=== PATIENT | female | born 1965 | race Caucasian/White ===

== ENCOUNTER → 2016-12-12 | Outpatient (CLI) | payer BC, SELFPAY ==
--- NOTE | 2016-12-12 10:18 | CT ---
EXAM DESCRIPTION: Abdomen/Pelvis w/Contrast CLINICAL HISTORY: Microscopic hematuria TECHNIQUE: CT of the abdomen and pelvis was performed with IV contrast.. Multiple axial images and multiplanar reconstructions were generated. FINDINGS: GI: No dilated bowel, free air, or free fluid. Liver: Two three low densities noted on the prior study are due to benign cavernous hemangiomas. Likely left hepatic cyst noted. Biliary: No calcified gallstones. Spleen: Unremarkable. Pancreas: Unremarkable. Adrenal Glands: No significant nodularity. Kidneys: No suspicious enhancement. Tiny subcentimeter low densities noted bilaterally compatible with cysts. Pelvic organs: The patient is status post hysterectomy. Bilateral adnexae are also not visualized. Bones: No suspicious lesion/fracture. Lymph nodes: No enlarged lymph nodes. Lung bases: No significant consolidation or nodularity. IMPRESSION: 1. No findings to account for patient's microscopic hematuria. 2. The abnormalities noted on the prior CT from April 2016 related to hepatic cysts and benign cavernous hemangiomas. Electronically signed by: Lavelle Palacios MD 12/12/2016 10:17 AM CDT
== END | disposition home or self-care (01) ==
LOC: CT 08:09
PROVIDERS: ATTEND Urology
DX: R31.9 Hematuria, unspecified (principal)

== ENCOUNTER → 2017-06-18 | Outpatient (CLI) | payer BC | END | disposition home or self-care (01) | LOC: GMAJ 10:41 | PROVIDERS: ATTEND Family Medicine | DX: Z00.00 Encounter for general adult medical examination without abnormal findings (principal) ==

== ENCOUNTER → 2018-01-02 | Outpatient (CLI) | payer OTHER | LOC: LAB.O 09:49 | PROVIDERS: ATTEND Physician Assistant | DX: N39.0 Urinary tract infection, site not specified (principal) ==

== ENCOUNTER → 2018-03-03 | Outpatient (CLI) | payer BC | LOC: GMAJ 10:37 | PROVIDERS: ATTEND Family Medicine | DX: R06.02 Shortness of breath (principal) ==

== ENCOUNTER → 2018-05-28 | Outpatient (CLI) | payer BC ==
--- NOTE | 2018-06-02 14:58 | MAM ---
EXAM DESCRIPTION: 3D Screening BILATERAL : Digital Mammography. CLINICAL HISTORY: 52 years Female SCREENING . No personal history of breast cancer. Remote family history of breast cancer. Childbirth. Hysterectomy. Taking estradiol currently.. Lifetime risk of developing breast cancer (Tyrer-Cuzick model) is 6.1 %. COMPARISON: None.. No prior reports available. TECHNIQUE: Bilateral CC and MLO projection full-field images, Digital tomosynthesis mammographic technique. Bilateral digital 2-D full-field MLO images. CAD not utilized. FINDINGS: The breast parenchymal density pattern is: Scattered areas of fibroglandular density. No skin thickening or nipple retraction. Bilateral axillary lymph nodes. Bilateral solitary microcalcifications and benign type groups of microcalcifications. Group of heterogeneous calcifications are visible in the middle to posterior third of the left breast at the 300-330 clock position approximately 7.7 cm from the nipple. No new focal, stellate mass or density, focal asymmetry , and no suspicious microcalcifications right breast. IMPRESSION: BI-RADS CATEGORY: 0 - INCOMPLETE- Need additional imaging evaluation. FOLLOW-UP: Recall for additional imaging: Full-field digital diagnostic imaging and spot magnification digital imaging of the left breast. Possible follow-up targeted left breast ultrasound. Depending on the diagnostic images. Written communication concerning the IMPRESSION and Follow-up, will be mailed to the patient and referring health care provider. Electronically signed by: Shivam Freitas MD 06/02/2018 2:57 PM CDT
== END ==
LOC: MAMMO 14:00
PROVIDERS: ATTEND Obstetrics & Gynecology
DX: Z12.31 Encounter for screening mammogram for malignant neoplasm of breast (principal)

== ENCOUNTER → 2018-06-11 | Outpatient (CLI) | payer BC, OTHER ==
--- NOTE | 2018-06-11 15:38 | US ---
EXAM DESCRIPTION: Breast,Right: Ultrasound CLINICAL HISTORY: 52 yearsFemaleABNORMAL MAMMO COMPARISON: Digital diagnostic mammogram right breast date Other TECHNIQUE: Transcutaneous scanning of the right breast utilizing valentino-scale and Doppler modes. Scanning performed by the long chain beamer and Dr. Freitas. FINDINGS: Scanning of the retroareolar right breast, with emphasis on the 3:00 position near the posterior nipple line 4 cm from the nipple. Mixed fibroglandular and fatty echotexture. Small ducts are seen. No distinct solid mass or cyst. No parenchymal edema or large calcifications. No overlying skin changes. No abnormal vascularity. IMPRESSION: 1. Bi-Rads Category 2: Benign. 2. Please refer to bilateral diagnostic digital breast tomosynthesis and 2-D special digital images right breast and report on this visit. The FINDINGS and the FOLLOW-UP plan were reviewed in person with the patient after the examination. Written communication explaining the IMPRESSION and FOLLOW-UP will be mailed to the patient and referring care provider. Electronically signed by: Shivam Freitas MD 06/11/2018 3:36 PM CDT
--- NOTE | 2018-06-11 15:44 | MAM ---
EXAM DESCRIPTION: 3D Diagnostic, Bilateral: Digital Mammography CLINICAL HISTORY: 52 yearsFemaleABNORMAL MAMMOGRAM focal asymmetry retroareolar right breast. Microcalcifications left breast.. COMPARISON: Bilateral screening digital breast tomosynthesis 05/28/2018. Targeted right breast ultrasound following this examination.. . TECHNIQUE: Bilateral LM projection full-field images, digital mammographic tomosynthesis technique. 2-D digital magnification images of the anterior right breast MLO projection. CAD not utilized. FINDINGS: The breast parenchymal density pattern is: Scattered areas of fibroglandular density. No skin thickening or nipple retraction focal asymmetry is faintly seen at the 300 clock position of the right breast 4 cm posterior to the nipple abutting the posterior nipple line. Ultrasound: Scanning of the retroareolar right breast, with emphasis on the 3:00 position near the posterior nipple line 4 cm from the nipple. Mixed fibroglandular and fatty echotexture. Small ducts are seen. No distinct solid mass or cyst. No parenchymal edema or large calcifications. No overlying skin changes. No abnormal vascularity. IMPRESSION: Benign exam. BIRAD CATEGORY: 2 BENIGN FINDINGS. RECOMMENDATIONS: FOLLOW UP: Routine digital bilateral screening, one year interval from May 2018. Written communication explaining the IMPRESSION and follow-up, will be mailed to the patient and referring health care provider. According to the [employer], yearly mammograms are recommended starting at age 40 and continuing as long as a woman is in good health. Any breast change noted on a breast self-exam should be reported promptly to the patient's healthcare provider. Breast MRI is recommended for women with an approximately 20-25% or greater lifetime risk of breast cancer, including women with a strong family history of breast or ovarian cancer and women who have been treated for Hodgkin's disease. A negative mammographic report should not delay tissue diagnosis in patients with significant clinical history or physical findings. Extremely dense breast tissue limits the sensitivity of digital mammography. Electronically signed by: Shivam Freitas MD 06/11/2018 3:43 PM CDT
== END ==
LOC: MAMMO 09:01
PROVIDERS: ATTEND Family Medicine
DX: R92.8 Other abnormal and inconclusive findings on diagnostic imaging of breast (principal)
CPT/HCPCS: 76641; 77066; G0279

== ENCOUNTER 2020-05-02 14:32 | Emergency (ER) | payer BC ==
--- NOTE | 2020-05-02 14:36 | ED.PDOC ---
History of Present Illness - General Time Seen by Provider: 05/02/20 14:34 Source: patient - History of Present Illness Initial Comments: 54 year old female presents to the ED with chief complaint of left ankle pain following injury at home just prior to arrival. She states that she and her were trying to move a toolbox out of the bed of their truck when the top of the toolbox fell over and landed against her ankle. Her was able to lift the toolbox off. She reports constant throbbing pain to the L medial ankle which radiates throughout the ankle and to the other side, constant, 6/10 severity, worse with palpation and with weightbearing. She is unable to tolerate any weightbearing or walking. She has not taken any medications for relief. Denies any weakness, numbness. Reports some bruising and swelling to the Left ankle. Denies any foot pain. Allergies/Adverse Reactions: Allergies NO KNOWN ALLERGY Allergy (Verified 05/02/20 14:47) Home Medications: Ambulatory Orders Acetaminophen W/ Codeine [Tylenol W/ CODEINE #3] 1 tablet PO Q6H PRN 14 Days #10 tablet 05/02/20 Review of Systems - Review of Systems Review of Systems: 05/02/20 15:20 as per HPI All other Systems: Reviewed and Negative Past Medical History (General) - Patient Medical History Hx Congestive Heart Failure: No Hx Diabetes: No Family Medical History - Family History Mother Family History: Unknown Physical Exam - Physical Exam General Appearance: Alert, No apparent distress Eyes, Ears, Nose, Throat: PERRL/EOMI, normal ENT inspection Neck: full range of motion, supple, normal inspection Cardiovascular/Respiratory: regular rate, rhythm, no M/R/G, normal peripheral pulses, no JVD, normal breath sounds Gastrointestinal/Abdominal: non-tender, no organomegaly Back: normal inspection, no CVA tenderness, no vertebral tenderness Thigh/Hip: other - mild ecchymosis and soft tissue ttp R anteromedial thigh Leg: non-tender Knee: normal inspection, non-tender, no evidence of injury, normal ROM Ankle: other - L ankle with moderate ecchymosis and swelling, markedly ttp to medial and lateral ankle, ROM markedly limited due to pain, strength and sensation intact throughout, DP & PT pulses 2+ and equal Foot: normal inspection, non-tender, no evidence of injury, normal ROM Neuro/Tendon: normal sensation, normal motor functions Mental Status: alert, oriented x 3 Skin: warm/dry Progress - Progress Progress: 05/02/20 14:45 Acute L ankle pain -concern for R ankle fracture. Consider also R foot fracture, contusion injury, sprain/strain -obtain XR R ankle and R foot -cold compress, Tylenol #3 for pain 05/02/20 15:22 -X-ray L ankle and right foot reveals slightly displaced trimalleolar fracture of the L ankle. There is no evidence of L foot fracture. I discussed the patient and x-rays with Dr. lorenz, orthopedic surgery, who states that the patient will likely need surgery vs possible prolonged casting. Advises to place in splint, NWB LLE, f/u in ortho clinic tomorrow, elevate L leg, ice. -will place splint in ED and dc to home with plan as above Jeffrey León MD Billing #[id number] Procedures - Splinting Left Leg Hand-Made Type: orthoglass Splint: posterior lower leg Pre-Proc Neuro Vasc Exam: normal Post-Proc Neuro Vasc Exam: normal Departure - Departure Clinical Impression: Trimalleolar fracture of ankle, closed Qualifiers: Encounter type: initial encounter Laterality: left Qualified Code(s): S82.852A - Displaced trimalleolar fracture of left lower leg, initial encounter for closed fracture Time of Disposition: 15:29 Disposition: Discharge to Home or Self Care Condition: Good Instructions: Ankle Fracture (DC) Diet: resume usual diet Activity: other - non weight bearing left lower extremity Referrals: Campbell Mandujano MD [Primary Care Provider] - 1-2 Weeks Torres Lorenz MD [Active Staff] - 1-2 Days Prescriptions: Acetaminophen W/ Codeine [Tylenol W/ CODEINE #3] 1 tablet PO Q6H PRN 14 Days #10 tablet PRN Reason: Pain Home Medications: Ambulatory Orders Acetaminophen W/ Codeine [Tylenol W/ CODEINE #3] 1 tablet PO Q6H PRN 14 Days #10 tablet 05/02/20 Additional Instructions: Follow-up tomorrow as directed with orthopedic surgery clinic. Keep the splint in place at all times. Do not bear weight or walk on the left leg until cleared by orthopedic surgery. Return to the ED if you develop any concerning symptoms such as weakness or numbness in the left leg or color change of the left foot. Keep the left leg elevated as often as possible and continue to apply a cold pack to the affected area for 15 to 20 minutes every 1-2 hours for the next 2 to 3 days to help limit pain and swelling. Continue to take ywrl-azk-vhingug medication such as ibuprofen 600 mg every 6 hours as needed and Tylenol 650 mg every 6 hours as needed for pain. You may take the Tylenol 3 as directed for breakthrough pain. Do not operate heavy machinery or motor vehicles while taking this medication.
[2020-05-02 14:51] VITALS: TEMP 96.5
--- NOTE | 2020-05-02 15:03 | RAD ---
EXAM DESCRIPTION: Foot,Left 3 Views CLINICAL HISTORY: 54 years Female, left foot pain and injury COMPARISON: None. FINDINGS: Three views of the left foot show a minimally displaced medial malleolar fracture extending to the tibial plafond, additional lateral malleolar fracture. The left foot fracture or malalignment. No radiopaque foreign body or soft tissue gas. IMPRESSION: Medial and lateral malleolar fractures with intra-articular extension all better evaluated on today's left ankle series. No additional left foot abnormality. Electronically signed by: Gonzales Ravi MD 05/02/2020 3:01 PM CDT
[2020-05-02] MEDS ORDERED: ACETAMINOPHEN W/COD #3 TAB 1 EA TAB PO ONE (15:04)
--- NOTE | 2020-05-02 15:04 | RAD ---
EXAM DESCRIPTION: Ankle,Left 3 Views CLINICAL HISTORY: 54 years Female, left foot injury COMPARISON: None. FINDINGS: Three views of the left ankle show a vertically oriented fracture extending to the base of the medial malleolus to the tibial plafond. There is an obliquely oriented fracture involving the distal left fibular diaphysis/lateral malleolus. Small posterior malleolar fracture minimally displaced. The talar dome is intact, the tibiotalar joint is anatomically aligned. The calcaneus and subtalar joint are unremarkable. The base of the fifth metatarsal is intact. IMPRESSION: Slightly displaced trimalleolar left ankle fracture as detailed above. Electronically signed by: Gonzales Ravi MD 05/02/2020 3:02 PM CDT
[2020-05-02 16:05] VITALS: BP 160/101; O2SAT 98
== END 2020-05-02 15:55 | disposition home or self-care (01) ==
LOC: ER 14:32
DX: S82.852A Displaced trimalleolar fracture of left lower leg, initial encounter for closed fracture (principal); W20.8XXA Other cause of strike by thrown, projected or falling object, initial encounter; Y93.89 Activity, other specified; Y92.9 Unspecified place or not applicable

== ENCOUNTER → 2020-05-06 | Outpatient (CLI) | payer BC ==
--- NOTE | 2020-05-09 07:57 | CT ---
EXAM DESCRIPTION: CT left ankle CLINICAL HISTORY: Trimalleolar fracture. Trauma. Pain and swelling COMPARISON: None Available. TECHNIQUE: Spiral CT with multiplanar reformatted images. This exam was performed according to our departmental dose-optimization program, which includes automated exposure control, adjustment of the mA and/or kV according to patient size and/or use of iterative reconstruction technique. FINDINGS: Oblique fracture across the distal fibular metaphysis exiting posteriorly at the proximal metadiaphysis and anteriorly at the metaphysis/epiphysis junction. Minimal comminution with tiny marginal fragments. Greatest degree of displacement between the fibular shaft on the distal fragment about 4 mm Sagittal oblique mildly comminuted fracture across the medial malleolus from the medial metaphysis superiorly to the apex of the tibial plafond. Comminution at the plafond with tiny marginal fragments. Greatest degree of separation posteriorly about 5 mm. The dominant intra-articular fragment is located posterior medial measuring about 6 mm. Contiguous coronally oriented fracture across the posterior tibial malleolus. The posterior malleolar fragment is impacted about 4 mm No fracture of the tarsal bones Surrounding soft tissue swelling and edema. No tendon sheath effusion or intrinsic tendon signal abnormality IMPRESSION: Comminuted trimalleolar fracture of the ankle. Several tiny fragments along the fracture margins with a dominant 6 mm intra-articular body posterior medial. The posterior tibial malleolar fragment is impacted about 4 mm Electronically signed by: Reji Olivares MD 05/09/2020 7:55 AM CDT
== END ==
LOC: CT 11:13
PROVIDERS: ATTEND Orthopaedic Surgery
DX: S82.852A Displaced trimalleolar fracture of left lower leg, initial encounter for closed fracture (principal)

== ENCOUNTER → 2020-05-13 | Outpatient (CLI) | payer BC ==
--- NOTE | 2020-05-15 05:20 | RAD ---
EXAM DESCRIPTION: Ankle,Left 3 Views CLINICAL HISTORY: 54 years Female, CLOSED TRIMALLEOLAR FRACTURE OF LEFT ANKLE COMPARISON: May 11, 2020 Findings: 3 view(s)/radiograph(s) Redemonstrated internally fixated left ankle trimalleolar fracture. No hardware complication. Similar alignment. No interval healing. The talar dome is unremarkable. The ankle mortise is poorly profiled. Similar soft tissue swelling. No new fracture identified. No dislocation. IMPRESSION: Similar alignment of the internally fixated left ankle trimalleolar fracture. Electronically signed by: Oskar Franklin MD 05/15/2020 5:18 AM CDT
== END | disposition home or self-care (01) ==
LOC: RAD 09:43
PROVIDERS: ATTEND Orthopaedic Surgery
DX: S82.852D Displaced trimalleolar fracture of left lower leg, subsequent encounter for closed fracture with routine healing (principal)

== ENCOUNTER → 2020-07-15 | Outpatient (CLI) | payer BC ==
--- NOTE | 2020-07-17 06:10 | RAD ---
EXAM DESCRIPTION: Ankle,Left 3 Views: CR/DR/XR CLINICAL HISTORY: 55 years Female CLOSED BIMALLEOLAR FRACTURE OF LEFT ANKLE COMPARISON: 3 views left ankle June 17. TECHNIQUE: 3 VIEWS AP. Lateral. Oblique. Left ankle. FINDINGS: ORIF for the distal left fibula and lateral malleolus and the medial malleolus again noted with stable alignment and hardware. Cortical offset of the medial malleolus from prior fracture again noted. Widening of medial gutter of mortise again seen. No soft tissue swelling. No new fractures. No abnormal radiodense objects in the soft tissues. IMPRESSION: Stable ORIF hardware. Stable widening of the medial gutter of the ankle mortise. No new fracture or new alignment abnormality. Electronically signed by: Shivam Freitas MD 07/17/2020 6:08 AM CDT
== END ==
LOC: RAD 08:40
PROVIDERS: ATTEND Orthopaedic Surgery
DX: S82.842D Displaced bimalleolar fracture of left lower leg, subsequent encounter for closed fracture with routine healing (principal); Z98.890 Other specified postprocedural states

== ENCOUNTER 2020-07-24 16:33 | Emergency (ER) | payer BC ==
--- NOTE | 2020-07-24 17:51 | RAD ---
EXAM DESCRIPTION: Hip,Right 2 Views CLINICAL HISTORY: 55 years Female rt post proximal thigh pain 36 hours COMPARISON: None. TECHNIQUE: RIGHT hip, two views FINDINGS: No acute fractures or dislocations are identified. No osseous destructive lesions. IMPRESSION: No acute fracture is identified. Electronically signed by: Lilliam Estrada MD 07/24/2020 5:50 PM [employer]
--- NOTE | 2020-07-24 17:51 | RAD ---
EXAM DESCRIPTION: Femur,Right CLINICAL HISTORY: 55 years Female rt post proximal thigh pain 36 hours COMPARISON: None. TECHNIQUE: RIGHT femur, two views FINDINGS: No acute fractures or dislocations are identified. No osseous destructive lesions. IMPRESSION: No acute fracture is identified. Electronically signed by: Lilliam Estrada MD 07/24/2020 5:49 PM [employer]
[2020-07-24] MEDS ORDERED: CYCLOBENZAPRINE HCL 10 MG TAB PO ONE (17:54)
[2020-07-24] MEDS ORDERED: predniSONE 20 MG TAB PO ONE (17:54)
--- NOTE | 2020-07-24 18:01 | ED.PDOC ---
History of Present Illness - General Chief Complaint: General Stated Complaint: right hip pain that shoots down right leg Time Seen by Provider: 07/24/20 16:46 Source: patient Exam Limitations: no limitations - History of Present Illness Initial Comments: The patient is a 55-year-old female presented to emergency room secondary to 36-48 out of posterior lateral right thigh pain. It is worse with certain movements. It is worse with palpation that extends up to the lower pubic rami on that side. No loss of sensation. She has had sporadic issues in the past but the distribution has been different. No recent trauma but she does use the leg slightly abnormally as she does use crutches in order to favor the other leg that had surgery in the not so distant past. No obvious other injury. No low back pain. No pain over the piriformis muscle. Timing/Duration: other Severity: moderate Improving Factors: immobilization Worsening Factors: movement Associated Symptoms: denies symptoms Allergies/Adverse Reactions: Allergies NO KNOWN ALLERGY Allergy (Verified 07/24/20 16:53) Home Medications: Ambulatory Orders Estradiol 2 mg PO DAILY 05/05/20 HYDROcodone 5MG/APAP 325MG [[place] 5/325] 1 ea PO QID PRN 05/05/20 Cyclobenzaprine HCl [Flexeril] 5 mg PO TID PRN #30 tab 07/24/20 predniSONE [Prednisone] 20 mg PO DAILY #5 tab 07/24/20 Review of Systems - Review of Systems Constitutional: States: no symptoms reported EENTM: States: no symptoms reported Respiratory: States: no symptoms reported Cardiology: States: no symptoms reported Gastrointestinal/Abdominal: States: no symptoms reported Genitourinary: States: no symptoms reported Musculoskeletal: States: see HPI Skin: States: no symptoms reported Neurological: States: no symptoms reported Endocrine: States: no symptoms reported All other Systems: No Change from Baseline Past Medical History (General) - Patient Medical History Hx Seizures: No Hx Stroke: No Hx Dementia: No Hx Asthma: No Hx of COPD: No Hx Cardiac Disorders: No Hx Congestive Heart Failure: No Hx Pacemaker: No Hx Hypertension: No Hx Thyroid Disease: No Hx Diabetes: No Hx Gastroesophageal Reflux: No Hx Renal Disease: No Hx Cancer: No Hx of HIV: No Hx Hepatitis C: No Hx MRSA: No MRSA Source:: Wound - Vaccination History Hx Tetanus, Diphtheria Vaccination: No Hx Influenza Vaccination: No Hx Pneumococcal Vaccination: No - Social History Hx Tobacco Use: No Hx Alcohol Use: Yes Hx Substance Use: Yes - marijuana Family Medical History - Family History Mother Family History: Unknown Physical Exam - Physical Exam General Appearance: Alert, Comfortable, No apparent distress Eye Exam: bilateral normal Ears, Nose, Throat: hearing grossly normal Neck: non-tender, supple Respiratory: no respiratory distress, no accessory muscle use Cardiovascular/Chest: normal peripheral pulses, no edema Peripheral Pulses: dorsalis pedis,right: 2+, dorsalis pedis,left: 2+ Gastrointestinal/Abdominal: non tender, soft Rectal Exam: deferred Back Exam: no CVA tenderness, no vertebral tenderness Extremity: normal range of motion - Passive and active, no pedal edema, no calf tenderness, normal capillary refill, other - See history of present illness 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 Progress - Progress Progress: 07/24/20 18:01 The patient is a 55-year-old female presented to emergency room secondary to right hip and posterior lateral upper thigh discomfort with certain movements. Based on exam I do believe that she has most likely strained the long head of the biceps femoris muscle. She does need to do very frequent stretching exercises. Topical heat may also prove beneficial along with light massage therapy. The patient will be written for prednisone and Flexeril for the next few days. She can additionally take [id number]-[id number] Motrin or Aleve. ER warnings are given for any obvious worsening. Follow-up with primary care doctor as routine otherwise. edith maradiaga [phone] - EKG/XRAY/CT CT Ordered: No CT Interpretation Call Back: No Departure - Departure Clinical Impression: Muscle strain of right thigh Qualifiers: Encounter type: initial encounter Qualified Code(s): S76.911A - Strain of unspecified muscles, fascia and tendons at thigh level, right thigh, initial encounter Disposition: Discharge to Home or Self Care Condition: Fair Departure Forms: ED Discharge - Pt. Copy, Patient Portal Self Enrollment Instructions: Muscle Strain Diet: regular diet Activity: increase activity as tolerated Referrals: Campbell Mandujano MD [Primary Care Provider] - 1-2 Weeks Prescriptions: Cyclobenzaprine HCl [Flexeril] 5 mg PO TID PRN #30 tab PRN Reason: Muscle Spasms predniSONE [Prednisone] 20 mg PO DAILY #5 tab Home Medications: Ambulatory Orders Estradiol 2 mg PO DAILY 05/05/20 HYDROcodone 5MG/APAP 325MG [[place] 5/325] 1 ea PO QID PRN 05/05/20 Cyclobenzaprine HCl [Flexeril] 5 mg PO TID PRN #30 tab 07/24/20 predniSONE [Prednisone] 20 mg PO DAILY #5 tab 07/24/20 Additional Instructions: The patient is a 55-year-old female presented to emergency room secondary to right hip and posterior lateral upper thigh discomfort with certain movements. Based on exam I do believe that she has most likely strained the long head of the biceps femoris muscle. She does need to do very frequent stretching exercises. Topical heat may also prove beneficial along with light massage therapy. The patient will be written for prednisone and Flexeril for the next few days. She can additionally take [id number] Motrin or Aleve. ER warnings are given for any obvious worsening. Follow-up with primary care doctor as routine otherwise.
[2020-07-24 18:20] VITALS: O2SAT 98
[2020-07-24 18:22] VITALS: BP 160/99; TEMP 97.8
== END 2020-07-24 18:15 | disposition home or self-care (01) ==
LOC: ER 16:33
DX: S76.911A Strain of unspecified muscles, fascia and tendons at thigh level, right thigh, initial encounter (principal); Y92.9 Unspecified place or not applicable; X58.XXXA Exposure to other specified factors, initial encounter
CPT/HCPCS: 73502; 73551; J7512

== ENCOUNTER → 2020-08-03 | Outpatient (CLI) | payer BC ==
--- NOTE | 2020-08-03 14:35 | RAD ---
EXAM DESCRIPTION: Ankle,Left 3 Views CLINICAL HISTORY: 55 years, Female, DISPLACED BIMALLEOLAR FRACTURE OF LT LOWER LEG COMPARISON: Previous x-ray study left ankle July 15, 2020 TECHNIQUE: AP/lateral/oblique of the Right or left ankle FINDINGS: Orthopedic screws x2 through the medial malleolus. Periosteal new bone formation is seen superiorly. Plate and screws in the distal left fibula stabilize oblique distal fibular fracture. Periosteal new bone formation is seen medially. On the lateral view, minimal bridging callus in the region of the proximal aspect of the fibular fracture. No broken screws. The plate appears intact. IMPRESSION: Orthopedic hardware in the left ankle stabilizing healing fractures. Electronically signed by: Denys Jenkins MD 08/03/2020 2:34 PM [facility]
== END ==
LOC: RAD 09:40
PROVIDERS: ATTEND Orthopaedic Surgery
DX: S82.842D Displaced bimalleolar fracture of left lower leg, subsequent encounter for closed fracture with routine healing (principal); Z98.890 Other specified postprocedural states

== ENCOUNTER → 2020-08-26 | Outpatient (CLI) | payer BC ==
--- NOTE | 2020-08-27 09:23 | RAD ---
EXAM: Ankle,Left 3 Views CLINICAL HISTORY: CLOSED BIMALLEOLAR FX. TECHNIQUE: AP, lateral and oblique images. COMPARISON STUDY: Left ankle x-rays from August 03, 2020 FINDINGS: Plate and screws along the distal fibula are unchanged. 2 screws within the medial malleolus are stable. No hardware failure or acute fracture. Mild diffuse swelling persists. Ongoing healing is noted. IMPRESSION: Internal fixation of healing fibular and medial malleoli fractures. Electronically signed by: Kayode Zazueta MD 08/27/2020 9:22 AM [facility]
== END ==
LOC: RAD 07:36
PROVIDERS: ATTEND Orthopaedic Surgery
DX: S82.842D Displaced bimalleolar fracture of left lower leg, subsequent encounter for closed fracture with routine healing (principal); Z98.890 Other specified postprocedural states